=== PATIENT | female | born 1980 | race American Indian/Alaskan Native ===

== ENCOUNTER 2020-10-26 12:02 | Emergency (ER) | payer BC ==
[2020-10-26 12:07] VITALS: BP 119/80
--- NOTE | 2020-10-26 12:09 | Event Note ---
ED Screening Note ED Screening Note: preg in bleeding spotting [id number] Aleena OB pmh none psh csec rx prental vit This initial assessment/diagnostic orders/clinical plan/treatment(s) is/are subject to change based on patients health status, clinical progression and re- assessment by fellow clinical providers in the ED. Further treatment and workup at subsequent clinical providers discretion. Patient/guardian urged not to elope from the ED as their condition may be serious if not clinically assessed and managed. Initial orders include: cj ab
--- NOTE | 2020-10-26 12:31 | Emergency Department Report ---
<COURTNEY BROOKS - Last Filed: 10/26/20 14:29> ED HPI - General Chief complaint: Vaginal Bleeding Stated complaint: VAGINAL SPOTTING Time Seen by Provider: 10/26/20 12:08 Source: patient Mode of arrival: Ambulatory Limitations: No Limitations - Related Data Home Medications Medication Instructions Recorded Confirmed Last Taken Acyclovir [Zovirax Tab] 800 mg PO QID 09/10/13 04/13/14 04/13/14 08:00 Previous Rx's Medication Instructions Recorded Last Taken Type Nitrofurantoin [place]/M-Cryst 100 mg PO Q12HR #14 capsule 04/14/14 Unknown Rx [Macrobid] Ondansetron [Zofran Odt] 4 mg PO Q4H #10 tab.rapdis 04/14/14 Unknown Rx Pnv95/Ferrous Fumarate/FA 1 each PO QDAY #90 tablet 08/08/14 Unknown Rx [ Vitamins] DOXYCYCLINE Hyclate [Vibramycin 100 mg PO Q12HR #20 capsule 06/02/15 Unknown Rx CAP] Ibuprofen [Motrin] 600 mg PO Q8H PRN #40 tablet 06/02/15 Unknown Rx Ibuprofen [Motrin] 800 mg PO Q8HR #40 tablet 04/26/20 Unknown Rx Acetaminophen [Tylenol] 500 mg PO Q6HR PRN #30 tablet 05/06/20 Unknown Rx Nitrofurantoin [place]/M-Cryst 100 mg PO Q12HR #10 capsule 10/26/20 Unknown Rx [Macrobid CAP] Allergies Allergy/AdvReac Type Severity Reaction Status Date / Time No Known Allergies Allergy Verified 10/26/20 12:04 ED Past Medical Hx - Past Medical History Hx Asthma: Yes Additional medical history: Herpes - Surgical History Hx Breast Surgery: Yes (lump in right breast removed) Additional Surgical History: lump in right breast removed. C section - Social History Smoking Status: Never Smoker Substance Use Type: None - Medications Home Medications: Home Medications Medication Instructions Recorded Confirmed Last Taken Type Acyclovir [Zovirax Tab] 800 mg PO QID 09/10/13 04/13/14 04/13/14 08:00 History Nitrofurantoin [place]/M-Cryst 100 mg PO Q12HR #14 capsule 04/14/14 Unknown Rx [Macrobid] Ondansetron [Zofran Odt] 4 mg PO Q4H #10 tab.rapdis 04/14/14 Unknown Rx Pnv95/Ferrous Fumarate/FA 1 each PO QDAY #90 tablet 08/08/14 Unknown Rx [ Vitamins] DOXYCYCLINE Hyclate [Vibramycin 100 mg PO Q12HR #20 capsule 06/02/15 Unknown Rx CAP] Ibuprofen [Motrin] 600 mg PO Q8H PRN #40 tablet 06/02/15 Unknown Rx Ibuprofen [Motrin] 800 mg PO Q8HR #40 tablet 04/26/20 Unknown Rx Acetaminophen [Tylenol] 500 mg PO Q6HR PRN #30 tablet 05/06/20 Unknown Rx Nitrofurantoin [place]/M-Cryst 100 mg PO Q12HR #10 capsule 10/26/20 Unknown Rx [Macrobid CAP] ED Physical Exam - General Limitations: No Limitations ED Medical Decision Making - Lab Data Result diagrams: 10/26/20 12:37 10/26/20 12:37 Lab Results 10/26/20 10/26/20 10/26/20 Range/Units 12:20 12:37 12:37 WBC 8.5 (4.5-11.0) K/mm3 RBC 4.16 (3.65-5.03) M/mm3 Hgb 11.9 (10.1-14.3) gm/dl Hct 35.2 (30.3-42.9) % MCV 85 (79-97) fl MCH 29 (28-32) pg MCHC 34 (30-34) % RDW 16.6 H (13.2-15.2) % Plt Count 268 (140-440) K/mm3 Lymph % (Auto) 28.3 (13.4-35.0) % [place] % (Auto) 10.3 H (0.0-7.3) % Eos % (Auto) 1.4 (0.0-4.3) % Baso % (Auto) 0.3 (0.0-1.8) % Lymph # (Auto) 2.4 (1.2-5.4) K/mm3 [place] # (Auto) 0.9 H (0.0-0.8) K/mm3 Eos # (Auto) 0.1 (0.0-0.4) K/mm3 Baso # (Auto) 0.0 (0.0-0.1) K/mm3 Seg Neutrophils % 59.7 (40.0-70.0) % Seg Neutrophils # 5.1 (1.8-7.7) K/mm3 Sodium 137 (137-145) mmol/L Potassium 3.7 (3.6-5.0) mmol/L Chloride 106.4 (98-107) mmol/L Carbon Dioxide 25 (22-30) mmol/L Anion Gap 9 mmol/L BUN 6 L (7-17) mg/dL Creatinine 0.5 L (0.6-1.2) mg/dL Estimated GFR > 60 ml/min BUN/Creatinine Ratio 12 % Glucose 81 (65-100) mg/dL Calcium 8.8 (8.4-10.2) mg/dL Total Bilirubin 0.70 (0.1-1.2) mg/dL AST 12 (5-40) units/L ALT 11 (7-56) units/L Alkaline Phosphatase 42 (35-129) units/L Total Protein 7.2 (6.3-8.2) g/dL Albumin 4.2 (3.9-5) g/dL Albumin/Globulin Ratio 1.4 % HCG, Quant (0-4) mIU/mL Urine Color Red (Yellow) Urine Turbidity Slightly cloudy (Clear) Urine pH 6.0 (5.0-7.0) Ur Specific [place] 1.014 (1.003-1.030) Urine Protein 100 mg/dl (Negative) mg/dL Urine Glucose (UA) Neg (Negative) mg/dL Urine Ketones Neg (Negative) mg/dL Urine Blood Lg (Negative) Urine Nitrite Neg (Negative) Urine Bilirubin Neg (Negative) Urine Urobilinogen < 2.0 (<2.0) mg/dL Ur Leukocyte Esterase Sm (Negative) Urine WBC (Auto) 26.0 H (0.0-6.0) /HPF Urine RBC (Auto) 9.0 (0.0-6.0) /HPF U Epithel Cells (Auto) 24.0 H (0-13.0) /HPF Urine Bacteria (Auto) 1+ (Negative) /HPF Urine Mucus Few /HPF 10/26/20 Range/Units 12:37 WBC (4.5-11.0) K/mm3 RBC (3.65-5.03) M/mm3 Hgb (10.1-14.3) gm/dl Hct (30.3-42.9) % MCV (79-97) fl MCH (28-32) pg MCHC (30-34) % RDW (13.2-15.2) % Plt Count (140-440) K/mm3 Lymph % (Auto) (13.4-35.0) % [place] % (Auto) (0.0-7.3) % Eos % (Auto) (0.0-4.3) % Baso % (Auto) (0.0-1.8) % Lymph # (Auto) (1.2-5.4) K/mm3 [place] # (Auto) (0.0-0.8) K/mm3 Eos # (Auto) (0.0-0.4) K/mm3 Baso # (Auto) (0.0-0.1) K/mm3 Seg Neutrophils % (40.0-70.0) % Seg Neutrophils # (1.8-7.7) K/mm3 Sodium (137-145) mmol/L Potassium (3.6-5.0) mmol/L Chloride (98-107) mmol/L Carbon Dioxide (22-30) mmol/L Anion Gap mmol/L BUN (7-17) mg/dL Creatinine (0.6-1.2) mg/dL Estimated GFR ml/min BUN/Creatinine Ratio % Glucose (65-100) mg/dL Calcium (8.4-10.2) mg/dL Total Bilirubin (0.1-1.2) mg/dL AST (5-40) units/L ALT (7-56) units/L Alkaline Phosphatase (35-129) units/L Total Protein (6.3-8.2) g/dL Albumin (3.9-5) g/dL Albumin/Globulin Ratio % HCG, Quant 11048 H (0-4) mIU/mL Urine Color (Yellow) Urine Turbidity (Clear) Urine pH (5.0-7.0) Ur Specific [place] (1.003-1.030) Urine Protein (Negative) mg/dL Urine Glucose (UA) (Negative) mg/dL Urine Ketones (Negative) mg/dL Urine Blood (Negative) Urine Nitrite (Negative) Urine Bilirubin (Negative) Urine Urobilinogen (<2.0) mg/dL Ur Leukocyte Esterase (Negative) Urine WBC (Auto) (0.0-6.0) /HPF Urine RBC (Auto) (0.0-6.0) /HPF U Epithel Cells (Auto) (0-13.0) /HPF Urine Bacteria (Auto) (Negative) /HPF Urine Mucus /HPF - Radiology Data Radiology results: report reviewed US OB <= 14 weeks fetus, US OB transvaginal INDICATION / CLINICAL INFORMATION: bleeding in . COMPARISON: None available. FINDINGS: A single live fetus is seen in the uterus of approximately 7 weeks 3 days gestational age. [place]- rump length is 1.25 cm. heart rate is 158. There may be a subchorionic bleed present. Small cysts are present in the left ovary. The right ovary is normal. IMPRESSION: Single live fetus in the uterus of approximately 7 weeks 3 days gestational age. heart rate is 158. There may be a subchorionic bleed present. Small cysts are present in the left ovary ED Disposition Clinical Impression: Vaginal bleeding during UTI (urinary tract infection) Qualifiers: Urinary tract infection type: site unspecified Hematuria presence: without hematuria Qualified Code(s): N39.0 - Urinary tract infection, site not specified Disposition: DC-01 TO HOME OR SELFCARE Condition: Stable Instructions: Threatened Miscarriage, Urinary Tract Infection, Adult Additional Instructions: med as ordered today nothing in vagina- pelvic rest- tylenol for pain stay well hydrated follow up in 48 for recheck of LABS- SEE YOUR OB OR THE ONE BELOW Prescriptions: Nitrofurantoin [place]/M-Cryst [Macrobid CAP] 100 mg PO Q12HR #10 capsule Referrals: BENJAMÍN ALBA MD [Staff Physician] - 3-5 Days Forms: Work/School Release Form(ED) <MASSIMO NAVARRETE - Last Filed: 10/26/20 14:47> ED HPI - History of Present Illness Initial comments: Patient is a 39-year-old -[place] female that comes to the ER today for first trimester with vaginal spotting that started this morning. She has intermittent cramps. They come and go. She has had care and is on a vitamin. Patient is ambulatory, nontoxic and [id number] on arrival. Patient states that the vaginal spotting is light in nature. This would be patient's third . She has 1 living child and has had a miscarriage in the past. Complaint: vaginal bleeding -: Sudden Consistency: intermittent Improves with: none Worsens with: none Associated symptoms: denies other symptoms, vaginal bleeding. denies: vaginal discharge ED Review of Systems ROS: Stated complaint: VAGINAL SPOTTING Other details as noted in HPI Comment: All other systems reviewed and negative ED Past Medical Hx - Past Medical History Previous Medical History?: Yes - Surgical History Past Surgical History?: Yes - Family History Family history: no significant ED Physical Exam - General General appearance: alert, in no apparent distress - Head Head exam: Present: atraumatic, normocephalic - Eye Eye exam: Present: normal appearance - ENT ENT exam: Present: mucous membranes moist - Neck Neck exam: Present: normal inspection - Respiratory Respiratory exam: Present: normal lung sounds bilaterally. Absent: respiratory distress - Cardiovascular Cardiovascular Exam: Present: regular rate, normal rhythm. Absent: systolic murmur, diastolic murmur, rubs, gallop - GI/Abdominal GI/Abdominal exam: Present: soft, normal bowel sounds - Extremities Exam Extremities exam: Present: normal inspection - Back Exam Back exam: Present: normal inspection - Neurological Exam Neurological exam: Present: alert, oriented X3 - Psychiatric Psychiatric exam: Present: normal affect, normal mood - Skin Skin exam: Present: warm, dry, intact, normal color. Absent: rash ED Course Vital Signs 10/26/20 12:06 Temperature 98.5 F Pulse Rate 82 Respiratory 20 Rate Blood Pressure 119/80 [Right] O2 Sat by Pulse 100 Oximetry ED Medical Decision Making - Lab Data Result diagrams: 10/26/20 12:37 10/26/20 12:37 - Radiology Data Radiology results: report reviewed, image reviewed - Medical Decision Making Labs 10/26/20 10/26/20 10/26/20 12:20 12:37 12:37 WBC 8.5 RBC 4.16 Hgb 11.9 Hct 35.2 MCV 85 MCH 29 MCHC 34 RDW 16.6 H Plt Count 268 Lymph % (Auto) 28.3 [place] % (Auto) 10.3 H Eos % (Auto) 1.4 Baso % (Auto) 0.3 Lymph # (Auto) 2.4 [place] # (Auto) 0.9 H Eos # (Auto) 0.1 Baso # (Auto) 0.0 Seg Neutrophils % 59.7 Seg Neutrophils # 5.1 Sodium 137 Potassium 3.7 Chloride 106.4 Carbon Dioxide 25 Anion Gap 9 BUN 6 L Creatinine 0.5 L Estimated GFR > 60 BUN/Creatinine Ratio 12 Glucose 81 Calcium 8.8 Total Bilirubin 0.70 AST 12 ALT 11 Alkaline Phosphatase 42 Total Protein 7.2 Albumin 4.2 Albumin/Globulin Ratio 1.4 Urine Color Red Urine Turbidity Slightly cloudy Urine pH 6.0 Ur Specific [place] 1.014 Urine Protein 100 mg/dl Urine Glucose (UA) Neg Urine Ketones Neg Urine Blood Lg Urine Nitrite Neg Urine Bilirubin Neg Urine Urobilinogen < 2.0 Ur Leukocyte Esterase Sm Urine WBC (Auto) 26.0 H Urine RBC (Auto) 9.0 U Epithel Cells (Auto) 24.0 H Urine Bacteria (Auto) 1+ Urine Mucus Few Vital Signs 10/26/20 12:06 Temperature 98.5 F Pulse Rate 82 Respiratory 20 Rate Blood Pressure 119/80 [Right] O2 Sat by Pulse 100 Oximetry Labs noted. UA noted. Urine culture pending. Ultrasound noted. I have educated the patient about her beta quant, urine and ultrasound findings. She is being discharged home with follow-up in 48 hours with her CLINIC NURSE. On discharge patient is ambulatory taking p.o. and nontoxic on exam. She is relieved to today's findings. Patient verbalizes the importance of having follow-up exam in 48 hours. I have given her copies of her beta quant and urine. She is being discharged on Macrobid for her UTI. I told her that if we needed to change the antibiotic we would call her. - Differential Diagnosis ro ab Critical care attestation.: If time is entered above; I have spent that time in minutes in the direct care of this critically ill patient, excluding procedure time. ED Disposition Is pt being admited?: No Does the pt Need Aspirin: No Time of Disposition: 14:26
[2020-10-26 12:44] LABS: Bacteria,Urine 1+ /HPF (Negative); Bilirubin,Urine NEG (Negative); Blood,Urine LG (Negative); Color,Urine Red (Yellow); Mucus,Urine FEW /HPF; Urobilinogen,Urine < 2.0 mg/dL (<2.0)
[2020-10-26 13:34] LABS: Basophils % (Auto) 0.3 % (0.0-1.8); Eosinophils # (Auto) 0.1 K/mm3 (0.0-0.4); Eosinophils % (Auto) 1.4 % (0.0-4.3); Hematocrit 35.2 % (30.3-42.9); Hemoglobin 11.9 gm/dl (10.1-14.3); Lymphocytes # (Auto) 2.4 K/mm3 (1.2-5.4); Lymphocytes % (Auto) 28.3 % (13.4-35.0); Mean Corpuscular HGB Conc 34 % (30-34); Mean Corpuscular Volume 85 fl (79-97); Monocytes # (Auto) 0.9 K/mm3 (0.0-0.8); Monocytes % (Auto) 10.3 % (0.0-7.3); Platelet Count 268 K/mm3 (140-440); Red Blood Count 4.16 M/mm3 (3.65-5.03); Red Cell Distribution Width 16.6 % (13.2-15.2)
[2020-10-26 13:53] LABS: Alanine Aminotransferase 11 units/L (7-56); Albumin 4.2 g/dL (3.9-5); Blood Urea Nitrogen 6 mg/dL (7-17); Calcium 8.8 mg/dL (8.4-10.2); Hemolysis Index 4
--- NOTE | 2020-10-26 13:56 | Ultrasound Report ---
US OB <= 14 weeks fetus, US OB transvaginal INDICATION / CLINICAL INFORMATION: bleeding in . COMPARISON: None available. FINDINGS: A single live fetus is seen in the uterus of approximately 7 weeks 3 days gestational age. [place]-rump length is 1.25 cm. heart rate is 158. There may be a subchorionic bleed present. Small cysts a re present in the left ovary. The right ovary is normal. IMPRESSION: Single live fetus in the uterus of approximately 7 weeks 3 days gestational age. heart rate is 158. There may be a subchorionic bleed present. Small cysts are present in the left ovary Signer Name: Krzysztof Dempsey MD FACR Signed: 10/26/2020 1:52 PM Workstation Name: [id number]
[2020-10-26 13:57] LABS: BUN/Creatinine Ratio 12
== END 2020-10-26 14:30 | disposition home or self-care (01) ==
LOC: ED 12:02
DX: O23.41 Unspecified infection of urinary tract in pregnancy, first trimester (principal); O20.8 Other hemorrhage in early pregnancy; Z3A.01 Less than 8 weeks gestation of pregnancy; J45.909 Unspecified asthma, uncomplicated; Z98.890 Other specified postprocedural states; Z79.1 Long term (current) use of non-steroidal anti-inflammatories (NSAID); Z79.899 Other long term (current) drug therapy
CPT/HCPCS: 36415; 76801; 76817; 80053; 81001; 84702; 85025; 87086

== ENCOUNTER 2020-12-20 15:31 | Emergency (ER) | payer BC ==
--- NOTE | 2020-12-20 16:03 | Emergency Department Report ---
ED General Adult HPI - General Chief complaint: Vaginal Bleeding Stated complaint: 14WKS AND BLEEDING Source: patient Mode of arrival: Ambulatory Limitations: No Limitations - History of Present Illness Initial comments: 40-year-old -[place] female patient presents with complaints of increased vaginal bleeding today. Patient states she has had mild vaginal bleeding throughout her entire and has been following with her MAIL HANDLERS SUPERVISOR concerning this. She denies any abnormal ultrasounds. She is. She denies any pain, urinary symptoms, or stool changes. No fever/chills/sweats per patient. She states the blood turn from light pink to bright red today and denies going through more than 1 pad. Severity scale (0 -10): 0 - Related Data Home Medications Medication Instructions Recorded Confirmed Last Taken Acyclovir [Zovirax Tab] 800 mg PO QID 09/10/13 04/13/14 04/13/14 08:00 Previous Rx's Medication Instructions Recorded Last Taken Type Nitrofurantoin [place]/M-Cryst 100 mg PO Q12HR #14 capsule 04/14/14 Unknown Rx [Macrobid] Ondansetron [Zofran Odt] 4 mg PO Q4H #10 tab.rapdis 04/14/14 Unknown Rx Pnv95/Ferrous Fumarate/FA 1 each PO QDAY #90 tablet 08/08/14 Unknown Rx [ Vitamins] DOXYCYCLINE Hyclate [Vibramycin 100 mg PO Q12HR #20 capsule 06/02/15 Unknown Rx CAP] Ibuprofen [Motrin] 600 mg PO Q8H PRN #40 tablet 06/02/15 Unknown Rx Ibuprofen [Motrin] 800 mg PO Q8HR #40 tablet 04/26/20 Unknown Rx Acetaminophen [Tylenol] 500 mg PO Q6HR PRN #30 tablet 05/06/20 Unknown Rx Nitrofurantoin [place]/M-Cryst 100 mg PO Q12HR #10 capsule 10/26/20 Unknown Rx [Macrobid CAP] Allergies Allergy/AdvReac Type Severity Reaction Status Date / Time No Known Allergies Allergy Verified 12/20/20 15:52 ED Review of Systems ROS: Stated complaint: 14WKS AND BLEEDING Other details as noted in HPI Constitutional: denies: chills, fever Respiratory: denies: cough, shortness of breath Cardiovascular: denies: chest pain Gastrointestinal: denies: abdominal pain, nausea, vomiting Genitourinary: abnormal menses. denies: urgency, dysuria, frequency, hematuria, discharge, dyspareunia Musculoskeletal: denies: back pain Skin: denies: change in color Neurological: denies: headache Hematological/Lymphatic: denies: easy bleeding, easy bruising ED Past Medical Hx - Past Medical History Hx Asthma: Yes Additional medical history: Herpes - Surgical History Hx Breast Surgery: Yes (lump in right breast removed) Additional Surgical History: lump in right breast removed. C section - Social History Smoking Status: Never Smoker - Medications Home Medications: Home Medications Medication Instructions Recorded Confirmed Last Taken Type Acyclovir [Zovirax Tab] 800 mg PO QID 09/10/13 04/13/14 04/13/14 08:00 History Nitrofurantoin [place]/M-Cryst 100 mg PO Q12HR #14 capsule 04/14/14 Unknown Rx [Macrobid] Ondansetron [Zofran Odt] 4 mg PO Q4H #10 tab.rapdis 04/14/14 Unknown Rx Pnv95/Ferrous Fumarate/FA 1 each PO QDAY #90 tablet 08/08/14 Unknown Rx [ Vitamins] DOXYCYCLINE Hyclate [Vibramycin 100 mg PO Q12HR #20 capsule 06/02/15 Unknown Rx CAP] Ibuprofen [Motrin] 600 mg PO Q8H PRN #40 tablet 06/02/15 Unknown Rx Ibuprofen [Motrin] 800 mg PO Q8HR #40 tablet 04/26/20 Unknown Rx Acetaminophen [Tylenol] 500 mg PO Q6HR PRN #30 tablet 05/06/20 Unknown Rx Nitrofurantoin [place]/M-Cryst 100 mg PO Q12HR #10 capsule 10/26/20 Unknown Rx [Macrobid CAP] ED Physical Exam - General Limitations: No Limitations General appearance: alert, in no apparent distress - Head Head exam: Present: atraumatic, normocephalic - Eye Eye exam: Present: normal appearance. Absent: scleral icterus - Neck Neck exam: Present: normal inspection - Respiratory Respiratory exam: Present: normal lung sounds bilaterally. Absent: respiratory distress - Cardiovascular Cardiovascular Exam: Present: regular rate, normal rhythm. Absent: systolic murmur, diastolic murmur, rubs, gallop - GI/Abdominal GI/Abdominal exam: Present: soft, normal bowel sounds. Absent: tenderness, guarding, rebound, rigid - Extremities Exam Extremities exam: Present: full ROM - Neurological Exam Neurological exam: Present: alert, oriented X3, normal gait - Psychiatric Psychiatric exam: Present: normal affect, normal mood - Skin Skin exam: Present: warm, dry, intact, normal color. Absent: rash ED Course Vital Signs 12/20/20 12/20/20 15:54 15:57 Temperature 98.0 F Pulse Rate 86 Respiratory 20 Rate Blood Pressure 126/80 O2 Sat by Pulse 100 Oximetry ED Medical Decision Making - Lab Data Result diagrams: 12/20/20 16:08 12/20/20 16:08 Lab Results 12/20/20 12/20/20 12/20/20 Range/Units 16:08 16:08 16:08 WBC 7.6 (4.5-11.0) K/mm3 RBC 3.78 (3.65-5.03) M/mm3 Hgb 11.0 (10.1-14.3) gm/dl Hct 32.2 (30.3-42.9) % MCV 85 (79-97) fl MCH 29 (28-32) pg MCHC 34 (30-34) % RDW 14.4 (13.2-15.2) % Plt Count 240 (140-440) K/mm3 Lymph % (Auto) 26.3 (13.4-35.0) % [place] % (Auto) 11.9 H (0.0-7.3) % Eos % (Auto) 1.9 (0.0-4.3) % Baso % (Auto) 0.5 (0.0-1.8) % Lymph # (Auto) 2.0 (1.2-5.4) K/mm3 [place] # (Auto) 0.9 H (0.0-0.8) K/mm3 Eos # (Auto) 0.1 (0.0-0.4) K/mm3 Baso # (Auto) 0.0 (0.0-0.1) K/mm3 Seg Neutrophils % 59.4 (40.0-70.0) % Seg Neutrophils # 4.5 (1.8-7.7) K/mm3 Sodium 136 L (137-145) mmol/L Potassium 3.6 (3.6-5.0) mmol/L Chloride 103.4 (98-107) mmol/L Carbon Dioxide 23 (22-30) mmol/L Anion Gap 13 mmol/L BUN 8 (7-17) mg/dL Creatinine 0.6 (0.6-1.2) mg/dL Estimated GFR > 60 ml/min BUN/Creatinine Ratio 13 % Glucose 74 (65-100) mg/dL Calcium 9.0 (8.4-10.2) mg/dL Total Bilirubin 0.40 (0.1-1.2) mg/dL AST 18 (5-40) units/L ALT 19 (7-56) units/L Alkaline Phosphatase 35 (35-129) units/L Total Protein 6.7 (6.3-8.2) g/dL Albumin 3.6 L (3.9-5) g/dL Albumin/Globulin Ratio 1.2 % HCG, Quant 10718 H (0-4) mIU/mL Urine Color (Yellow) Urine Turbidity (Clear) Urine pH (5.0-7.0) Ur Specific [place] (1.003-1.030) Urine Protein (Negative) mg/dL Urine Glucose (UA) (Negative) mg/dL Urine Ketones (Negative) mg/dL Urine Blood (Negative) Urine Nitrite (Negative) Urine Bilirubin (Negative) Urine Urobilinogen (<2.0) mg/dL Ur Leukocyte Esterase (Negative) Urine WBC (Auto) (0.0-6.0) /HPF Urine RBC (Auto) (0.0-6.0) /HPF U Epithel Cells (Auto) (0-13.0) /HPF Urine Mucus /HPF 12/20/ Range/Units 16:37 WBC (4.5-11.0) K/mm3 RBC (3.65-5.03) M/mm3 Hgb (10.1-14.3) gm/dl Hct (30.3-42.9) % MCV (79-97) fl MCH (28-32) pg MCHC (30-34) % RDW (13.2-15.2) % Plt Count (140-440) K/mm3 Lymph % (Auto) (13.4-35.0) % [place] % (Auto) (0.0-7.3) % Eos % (Auto) (0.0-4.3) % Baso % (Auto) (0.0-1.8) % Lymph # (Auto) (1.2-5.4) K/mm3 [place] # (Auto) (0.0-0.8) K/mm3 Eos # (Auto) (0.0-0.4) K/mm3 Baso # (Auto) (0.0-0.1) K/mm3 Seg Neutrophils % (40.0-70.0) % Seg Neutrophils # (1.8-7.7) K/mm3 Sodium (137-145) mmol/L Potassium (3.6-5.0) mmol/L Chloride (98-107) mmol/L Carbon Dioxide (22-30) mmol/L Anion Gap mmol/L BUN (7-17) mg/dL Creatinine (0.6-1.2) mg/dL Estimated GFR ml/min BUN/Creatinine Ratio % Glucose (65-100) mg/dL Calcium (8.4-10.2) mg/dL Total Bilirubin (0.1-1.2) mg/dL AST (5-40) units/L ALT (7-56) units/L Alkaline Phosphatase (35-129) units/L Total Protein (6.3-8.2) g/dL Albumin (3.9-5) g/dL Albumin/Globulin Ratio % HCG, Quant (0-4) mIU/mL Urine Color Yellow (Yellow) Urine Turbidity Slightly cloudy (Clear) Urine pH 6.0 (5.0-7.0) Ur Specific [place] 1.016 (1.003-1.030) Urine Protein <30 mg dl (Negative) mg/dL Urine Glucose (UA) Negative (Negative) mg/dL Urine Ketones Negative (Negative) mg/dL Urine Blood Moderate A (Negative) Urine Nitrite Negative (Negative) Urine Bilirubin Negative (Negative) Urine Urobilinogen < 2.0 (<2.0) mg/dL Ur Leukocyte Esterase Negative (Negative) Urine WBC (Auto) 4.0 (0.0-6.0) /HPF Urine RBC (Auto) 3.0 (0.0-6.0) /HPF U Epithel Cells (Auto) 8.0 (0-13.0) /HPF Urine Mucus Few /HPF - Radiology Data Radiology results: report reviewed - Medical Decision Making 40-year-old -[place] female patient presents with complaints of increased vaginal bleeding today. Patient states she has had mild vaginal bleeding throughout her entire and has been following with her MAIL HANDLERS SUPERVISOR concerning this. She denies any abnormal ultrasounds. She is. She denies any pain, urinary symptoms, or stool changes. No fever/chills/sweats per patient. She states the blood turn from light pink to bright red today and denies going through more than 1 pad. Ultrasound shows viable IUP currently in breech position; 2.5 cm hyperechoic mass noted also that appears to be a fibroid per ultrasound report. CBC is normal. No signs of infection on UA. Recommend follow-up with MAIL HANDLERS SUPERVISOR in 3 to 5 days. Discussed pelvic rest and signs and symptoms that should prompt immediate return to the emergency department in detail with patient who verbalized understanding. Her vitals are normal, she is well-appearing, she is stable for discharge home. Critical care attestation.: If time is entered above; I have spent that time in minutes in the direct care of this critically ill patient, excluding procedure time. ED Disposition Clinical Impression: Second trimester bleeding Disposition: DC-01 TO HOME OR SELFCARE Is pt being admited?: No Condition: Stable Instructions: Vaginal Bleeding During , Second Trimester, Activity R estriction During Additional Instructions: These follow-up with your MAIL HANDLERS SUPERVISOR within 3 to 5 days
[2020-12-20 16:30] LABS: Basophils % (Auto) 0.5 % (0.0-1.8); Eosinophils # (Auto) 0.1 K/mm3 (0.0-0.4); Eosinophils % (Auto) 1.9 % (0.0-4.3); Hematocrit 32.2 % (30.3-42.9); Lymphocytes % (Auto) 26.3 % (13.4-35.0); Mean Corpuscular HGB Conc 34 % (30-34); Mean Corpuscular Volume 85 fl (79-97); Monocytes # (Auto) 0.9 K/mm3 (0.0-0.8); Monocytes % (Auto) 11.9 % (0.0-7.3); Platelet Count 240 K/mm3 (140-440); Red Blood Count 3.78 M/mm3 (3.65-5.03); Red Cell Distribution Width 14.4 % (13.2-15.2)
[2020-12-20 16:39] LABS: Alanine Aminotransferase 19 units/L (7-56); Albumin 3.6 g/dL (3.9-5); Blood Urea Nitrogen 8 mg/dL (7-17); Hemolysis Index 3
[2020-12-20 16:43] LABS: BUN/Creatinine Ratio 13
[2020-12-20 17:39] LABS: Bilirubin,Urine Negative (Negative); Blood,Urine Moderate (Negative); Color,Urine Yellow (Yellow); Protein,Urine <30 mg dL mg/dL (Negative)
[2020-12-20 17:40] LABS: Mucus,Urine Few /HPF; Urobilinogen,Urine < 2.0 mg/dL (<2.0)
--- NOTE | 2020-12-20 17:51 | Ultrasound Report ---
OBSTETRIC ULTRASOUND INDICATION: 15 weeks , vaginal bleeding COMPARISON: 10/26/2020 TECHNIQUE: Transabdominal and transvaginal imaging was performed. FINDINGS: Single viable intrauterine is identified. lie: Breech. Heart rate: 148 bpm. measurements are as follows: Biparietal diameter 3.0 cm, 15 weeks 4 days Head circumference 12.4 cm, 16 weeks 1 day Abdominal circumference 9.7 cm, 15 weeks 5 days Femur length 1.8 cm, 15 weeks 2 days Amniotic fluid index is 9 cm, within normal limits. There is a grade 1 posterior placenta. Cervix is closed measuring approximately 4 cm. There is a hypoechoic focus measuring 2.5 cm in the anterior uterus, this could be a fibroid. CONCLUSION: Single viable intrauterine currently in breech position. Amniotic fluid index is within nor mal limits. Cervix is closed. Signer Name: Joe Obrien MD Signed: 12/20/2020 5:46 PM Workstation Name: [id number]
[2020-12-20 18:47] VITALS: BP 118/75
== END 2020-12-20 18:46 | disposition home or self-care (01) ==
LOC: ED 15:31
DX: O20.9 Hemorrhage in early pregnancy, unspecified (principal); J45.909 Unspecified asthma, uncomplicated; Z79.899 Other long term (current) drug therapy; Z3A.15 15 weeks gestation of pregnancy
CPT/HCPCS: 36415; 76805; 76810; 76817; 80053; 81001; 84702; 85025

== ENCOUNTER 2022-02-01 16:41 | Emergency (ER) | payer BC, MEDICAID ==
[2022-02-01 17:06] VITALS: BP 131/70
--- NOTE | 2022-02-01 18:35 | Emergency Department Report ---
- General Chief Complaint: Sore Throat Stated Complaint: SORE THROAT/COLD Source: patient Mode of arrival: Ambulatory Limitations: No Limitations - History of Present Illness Initial Comments: 41-year-old female presents to the ED complaining of headache, loss of voice, fever ,cough worsening in the a.m. x3 weeks. She states taking [id number] medication without any relief. Patient states that she has allergies. 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 She denies any medication that works the makes it better. Patient denies any shortness of breath , chest pain or nausea or vomiting. Patient is alert and oriented x3. No acute distress noted. No ill appearance MD Complaint: cough, sore throat, nasal congestion Onset/Timin -: week(s) Severity: moderate Severity scale (0 -10): 6 Consistency: intermittent Improves With: nothing - Related Data Home Medications Medication Instructions Recorded Confirmed Last Taken Acyclovir [Zovirax Tab] 800 mg PO QID 09/10/13 04/13/14 04/13/14 08:00 Previous Rx's Medication Instructions Recorded Last Taken Type Nitrofurantoin York/M-Cryst 100 mg PO Q12HR #14 capsule 04/14/14 Unknown Rx [Macrobid] Ondansetron [Zofran Odt] 4 mg PO Q4H #10 tab.rapdis 04/14/14 Unknown Rx Pnv95/Ferrous Fumarate/FA 1 each PO QDAY #90 tablet 08/08/14 Unknown Rx [ Vitamins] DOXYCYCLINE Hyclate [Vibramycin 100 mg PO Q12HR #20 capsule 06/02/15 Unknown Rx CAP] Ibuprofen [Motrin] 600 mg PO Q8H PRN #40 tablet 06/02/15 Unknown Rx Ibuprofen [Motrin] 800 mg PO Q8HR #40 tablet 04/26/20 Unknown Rx Acetaminophen [Tylenol] 500 mg PO Q6HR PRN #30 tablet 05/06/20 Unknown Rx Nitrofurantoin York/M-Cryst 100 mg PO Q12HR #10 capsule 10/26/20 Unknown Rx [Macrobid CAP] Amoxicillin/Potassium Clav 1 each PO BID 10 Days #20 tab 02/01/22 Unknown Rx [Augmentin 875-125 Tablet] Brompheniram/Phenylephrine/Dm 5 ml PO BID 5 Days #118 ml 02/01/22 Unknown Rx [Wal-Tap Dm Cold-Cough Elixir] predniSONE [Deltasone] 50 mg PO QDAY 5 Days #5 tab 02/01/22 Unknown Rx Allergies Allergy/AdvReac Type Severity Reaction Status Date / Time No Known Allergies Allergy Verified 12/20/20 15:52 ED Review of Systems ROS: Stated complaint: SORE THROAT/COLD Other details as noted in HPI Constitutional: denies: chills, fever Eyes: denies: eye pain, eye discharge, vision change ENT: throat pain. denies: ear pain Respiratory: cough. denies: shortness of breath, wheezing Cardiovascular: denies: chest pain, palpitations Endocrine: no symptoms reported Gastrointestinal: denies: abdominal pain, nausea, diarrhea Genitourinary: denies: urgency, dysuria, discharge Musculoskeletal: denies: back pain, joint swelling, arthralgia Skin: denies: rash, lesions Neurological: denies: headache, weakness, paresthesias Psychiatric: denies: anxiety, depression Hematological/Lymphatic: denies: easy bleeding, easy bruising ED Past Medical Hx - Past Medical History Hx Asthma: Yes Additional medical history: Herpes - Surgical History Hx Breast Surgery: Yes (lump in right breast removed) Additional Surgical History: lump in right breast removed. C section - Social History Smoking Status: Never Smoker - Medications Home Medications: Home Medications Medication Instructions Recorded Confirmed Last Taken Type Acyclovir [Zovirax Tab] 800 mg PO QID 09/10/13 04/13/14 04/13/14 08:00 History Nitrofurantoin York/M-Cryst 100 mg PO Q12HR #14 capsule 04/14/14 Unknown Rx [Macrobid] Ondansetron [Zofran Odt] 4 mg PO Q4H #10 tab.rapdis 04/14/14 Unknown Rx Pnv95/Ferrous Fumarate/FA 1 each PO QDAY #90 tablet 08/08/14 Unknown Rx [ Vitamins] DOXYCYCLINE Hyclate [Vibramycin 100 mg PO Q12HR #20 capsule 06/02/15 Unknown Rx CAP] Ibuprofen [Motrin] 600 mg PO Q8H PRN #40 tablet 06/02/15 Unknown Rx Ibuprofen [Motrin] 800 mg PO Q8HR #40 tablet 04/26/20 Unknown Rx Acetaminophen [Tylenol] 500 mg PO Q6HR PRN #30 tablet 05/06/20 Unknown Rx Nitrofurantoin York/M-Cryst 100 mg PO Q12HR #10 capsule 10/26/20 Unknown Rx [Macrobid CAP] Amoxicillin/Potassium Clav 1 each PO BID 10 Days #20 tab 02/01/22 Unknown Rx [Augmentin 875-125 Tablet] Brompheniram/Phenylephrine/Dm 5 ml PO BID 5 Days #118 ml 02/01/22 Unknown Rx [Wal-Tap Dm Cold-Cough Elixir] predniSONE [Deltasone] 50 mg PO QDAY 5 Days #5 tab 02/01/22 Unknown Rx ED Physical Exam - General Limitations: No Limitations General appearance: alert, in no apparent distress - Head Head exam: Present: atraumatic, normocephalic - Eye Eye exam: Present: normal appearance - ENT ENT exam: Present: mucous membranes moist - Expanded ENT Exam Expanded TM/Canal exam: Cerumen Impaction: Right TM, Left TM, Mastoid Tenderness: Right TM, Left TM (Frontal) Mouth exam: Present: other (Postnasal drip) - Neck Neck exam: Present: normal inspection - Respiratory Respiratory exam: Present: normal lung sounds bilaterally. Absent: respiratory distress - Cardiovascular Cardiovascular Exam: Present: regular rate, normal rhythm. Absent: systolic murmur, diastolic murmur, rubs, gallop - GI/Abdominal GI/Abdominal exam: Present: soft, normal bowel sounds - Extremities Exam Extremities exam: Present: normal inspection - Back Exam Back exam: Present: normal inspection - Neurological Exam Neurological exam: Present: alert, oriented X3 - Psychiatric Psychiatric exam: Present: normal affect, normal mood - Skin Skin exam: Present: warm, dry, intact, normal color. Absent: rash ED Course Vital Signs 02/01/22 17:05 Temperature 98.9 F Pulse Rate 68 Respiratory 18 Rate Blood Pressure 131/70 [Right] O2 Sat by Pulse 99 Oximetry ED Medical Decision Making - Medical Decision Making 41-year-old female presents to the ED complaining of headache, loss of voice, fever ,cough worsening in the a.m. x3 weeks. She states taking [id number] medication without any relief. Patient states that she has allergies. 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 She denies any medication that works the makes it better. Patient denies any shortness of breath , chest pain or nausea or vomiting. Patient is alert and oriented x3. No acute distress noted. No ill appearance . Physical examination patient has cerumen impaction to bilateral ear Postnasal drip noted, tenderness to the noted maxillary sinuses. Rechecked the patient is resting quietly quietly and comfortable and feeling better. I discussed the results of diagnostic study, my clinical impression and the plan for further treatment with the patient. Patient agrees with plan and discharge at this present time. All question addressed. I have given the patient instruction regarding a diagnosis ,expectation ,follow- up and return precaution. I explained to the patient that emergent condition may arise and to return to the ED for new worsen and any new persisting condition. I have explained the importance of following up with the primary care physician or referral physician listed below has instructed. The patient verbalized understanding of discharge instruction. Critical care attestation.: If time is entered above; I have spent that time in minutes in the direct care of this critically ill patient, excluding procedure time. ED Disposition Clinical Impression: Acute sinusitis Qualifiers: Sinusitis location: frontal Recurrence: non-recurrent Qualified Code(s): J01.10 - Acute frontal sinusitis, unspecified Disposition: 01 HOME / SELF CARE / HOMELESS Is pt being admited?: No Does the pt Need Aspirin: No Condition: Stable Instructions: Sinusitis, Adult, [id number] Additional Instructions: Take medication as prescribed Return to ED for any worsening symptom Prescriptions: Amoxicillin/Potassium Clav [Augmentin 875-125 Tablet] 1 each PO BID 10 Days #20 tab predniSONE [Deltasone] 50 mg PO QDAY 5 Days #5 tab Brompheniram/Phenylephrine/Dm [Wal-Tap Dm Cold-Cough Elixir] 5 ml PO BID 5 Days #118 ml Referrals: [facility] [Provider Group] - 3-5 Days Forms: Work/School Release Form(ED)
== END 2022-02-01 18:58 | disposition home or self-care (01) ==
LOC: ED 16:41
DX: J01.90 Acute sinusitis, unspecified (principal); J45.909 Unspecified asthma, uncomplicated; Z79.899 Other long term (current) drug therapy
CPT/HCPCS: 99282